=== PATIENT | female | born 1975 | race Caucasian/White ===

== ENCOUNTER 2021-02-22 10:48 | Observation (INO) ==
[2021-02-22] MEDS ORDERED: Gadolinium Contrast Agent (WT Based) IV PRN ×2 (14:20→15:05)
[2021-02-22] MEDS ORDERED: 0.9 % Sodium Chloride 500 ML IVC STA (14:21)
[2021-02-22] MEDS ORDERED: Metoclopramide 10 MG/2 ML VIAL IVP ONE (14:21)
[2021-02-22 14:34] LABS: Basophils % 0.4 %; Eosinophils # 0.2 K/mcL (0.0-0.6); Eosinophils % 1.9 %; Hematocrit 43.4 % (35.3-44.9); Immature Granulocytes % 0.4 % (0-4); Lymphocytes # 2.6 K/mcL (0.6-4.6); Mean Corpuscular HGB Conc 32.3 g/dL (31.6-35.5); Mean Corpuscular Hemoglobin 30.4 pg (28.0-33.3); Mean Corpuscular Volume 94.1 fL (83.0-100.0); Mean Platelet Volume 10.3 fL (9.4-12.4); Monocytes # 0.4 K/mcL (0.0-1.3); Monocytes % 4.9 %; Neutrophils # 5.7 K/mcL (1.6-8.9); Platelet Count 229 K/mcL (140-400); Red Blood Count 4.61 M/mcL (3.82-4.97); Red Cell Distribution Width 12.3 % (11.5-14.5); Segmented Neutrophils % 63.4 %; White Blood Count 8.9 K/mcL (4.3-11.1)
[2021-02-22] MEDS ORDERED: methylPREDNISolone 1,000 MG in 0.9 % Sodium Chloride 50 ML IVPB ONE (15:05)
[2021-02-22] MEDS ORDERED: *HR* LORazepam 2 MG/ML VIAL IVP ONE (15:32)
[2021-02-22 15:40] LABS: BUN/Creatinine Ratio 15 (6-26); Blood Urea Nitrogen 10 mg/dL (6-20); Calcium 9.7 mg/dL (8.6-10.3); Carbon Dioxide 27 mEq/L (23-29); Chloride 104 mEq/L (98-107); Glucose 93 mg/dL (70-105); Osmolality,Calculated 287 (280-300); Potassium 3.9 mEq/L (3.5-5.1); Sodium 139 mEq/L (136-145); eGFR For African Americans > 60 (> 60); eGFR For Non-African Americans > 60 (> 60)
[2021-02-22] MEDS ORDERED: Naloxone 0.4 MG/ML INJ IVP PRN ×2 (17:12→17:22)
[2021-02-22] MEDS: Acetaminophen 325 MG TABLET PO PRN (17:33)
[2021-02-22] MEDS ORDERED: GADOBUTROL 30 MMOL/30 ML VIAL IVP ONE (18:22)
[2021-02-22] MEDS: *HR* Heparin 5,000 UNIT/ML VIAL SQ SCH (18:25)
[2021-02-22] MEDS: clonazePAM 0.5 MG TABLET PO SCH (20:44)
[2021-02-22] MEDS: Budesonide/Formoterol 160/4.5 1 PUFF INH IH SCH (21:27)
[2021-02-22] MEDS: Ibuprofen 600 MG TABLET PO PRN (21:30)
[2021-02-23] MEDS: Acetaminophen 325 MG TABLET PO PRN ×3 (04:20→21:47)
[2021-02-23] MEDS: *HR* Heparin 5,000 UNIT/ML VIAL SQ SCH ×2 (04:22→16:41)
[2021-02-23 06:34] LABS: Basophils % 0.1 %; Hemoglobin 13.6 g/dL (11.5-15.4); Immature Granulocytes % 0.4 % (0-4); Mean Corpuscular Hemoglobin 31.4 pg (28.0-33.3); Mean Corpuscular Volume 92.4 fL (83.0-100.0); Mean Platelet Volume 10.3 fL (9.4-12.4); Monocytes % 0.9 %; Platelet Count 242 K/mcL (140-400); Red Blood Count 4.33 M/mcL (3.82-4.97); Red Cell Distribution Width 12.2 % (11.5-14.5); Segmented Neutrophils % 92.6 %
[2021-02-23 06:47] LABS: Monocytes # 0.2 K/mcL (0.0-1.3); White Blood Count 16.2 K/mcL (4.3-11.1)
[2021-02-23 06:54] LABS: BUN/Creatinine Ratio 15 (6-26); Blood Urea Nitrogen 10 mg/dL (6-20); Calcium 9.5 mg/dL (8.6-10.3); Carbon Dioxide 21 mEq/L (23-29); Chloride 107 mEq/L (98-107); Glucose 180 mg/dL (70-105); Osmolality,Calculated 286 (280-300); Potassium 4.1 mEq/L (3.5-5.1); Sodium 136 mEq/L (136-145); eGFR For African Americans > 60 (> 60); eGFR For Non-African Americans > 60 (> 60)
[2021-02-23] MEDS: Budesonide/Formoterol 160/4.5 1 PUFF INH IH SCH ×2 (08:28→20:26)
[2021-02-23] MEDS: Loratadine 10 MG TABLET PO SCH (08:32)
[2021-02-23] MEDS: Ibuprofen 600 MG TABLET PO PRN ×2 (08:32→18:43)
[2021-02-23] MEDS: *HR* HYDROcodone/Acet 5/325 mg TABLET PO PRN (11:27)
[2021-02-23] MEDS: clonazePAM 0.5 MG TABLET PO SCH (21:45)
[2021-02-24] MEDS: Ibuprofen 600 MG TABLET PO PRN (05:13)
[2021-02-24] MEDS: *HR* Heparin 5,000 UNIT/ML VIAL SQ SCH (05:14)
[2021-02-24] MEDS: Budesonide/Formoterol 160/4.5 1 PUFF INH IH SCH (07:54)
[2021-02-24] MEDS: *HR* HYDROcodone/Acet 5/325 mg TABLET PO PRN (09:38)
[2021-02-24] MEDS: Loratadine 10 MG TABLET PO SCH (09:39)
[2021-02-24 10:40] VITALS: BP 146/72; PULSE 84; TEMP 98.3; O2SAT 95
== END 2021-02-24 14:42 | disposition home or self-care (01) ==
LOC: EMEROOARM 10:48 → 3BNU 10:48 → SUATTDRO 16:32 → 3BNU 17:10
PROVIDERS: ADMIT Internal Medicine; ATTEND Internal Medicine